=== PATIENT | female | born 1985 | race Caucasian/White ===

== ENCOUNTER 2022-07-11 07:14 | Emergency (ER) | payer SELFPAY ==
[2022-07-11] MEDS ORDERED: Acetaminophen 500 MG TAB ONE (09:29)
[2022-07-11] MEDS ORDERED: diphenhydrAMINE 12.5 MG/5 ML UDCUP ONE (09:29)
[2022-07-11] MEDS ORDERED: Metoclopramide 10 MG/10 ML UDCUP ONE (09:29)
[2022-07-11] MEDS ORDERED: Ketorolac Tromethamine 30 MG/ML VIAL ONE (09:29)
[2022-07-11] MEDS ORDERED: Ondansetron PF 4 MG/2 ML Vial ONE (09:29)
[2022-07-11] MEDS ORDERED: diphenhydrAMINE 50 MG/ML VIAL ONE (09:30)
[2022-07-11] MEDS ORDERED: Metoclopramide HCl 10 MG/2 ML VIAL ONE (09:30)
== END 2022-07-11 10:47 | disposition home or self-care (01) ==
LOC: ERS 07:14
DX: R51.9 Headache, unspecified (principal); R11.0 Nausea
CPT/HCPCS: 96365; 96375; J1200; J1885; J2405; J2765; Q0163